=== PATIENT | male | born 1960 | race Caucasian/White ===

== ENCOUNTER 2018-02-17 06:28 | Day surgery (SDC) | payer OTHER ==
[~2018-02-17] VITALS: Ht 177.8 cm; Wt 83.5 kg
[2018-02-17] MEDS ORDERED: CARV12.5 PO (07:32)
[2018-02-17] MEDS ORDERED: ATOR20TA PO (07:32)
[2018-02-17] MEDS ORDERED: LIDOCAINE 2% 100 MG/5 ML UJET TP ONE (09:05)
== END 2018-02-17 09:43 | disposition home or self-care (01) ==
LOC: MDS 06:28 → MMU 06:36 → MDS 09:43
PROVIDERS: ATTEND Internal Medicine Gastroenterology
DX: Z12.11 Encounter for screening for malignant neoplasm of colon (principal); D12.3 Benign neoplasm of transverse colon; K57.30 Diverticulosis of large intestine without perforation or abscess without bleeding; E78.5 Hyperlipidemia, unspecified; K21.9 Gastro-esophageal reflux disease without esophagitis; Z79.899 Other long term (current) drug therapy; Z68.26 Body mass index [BMI] 26.0-26.9, adult; B96.81 Helicobacter pylori [H. pylori] as the cause of diseases classified elsewhere; Z86.010 Personal history of colon polyps